=== PATIENT | male | born 1975 | race Caucasian/White ===

== ENCOUNTER 2019-07-30 01:06 | Day surgery (SDC) | payer MEDICARE, SELFPAY ==
[2019-07-27 13:49] VITALS: BMI 25.2
[2019-07-30 09:41] VITALS: BP 120/67; PULSE 69; RESP 18; TEMP 36.6; O2SAT 96; BMI 25.2
[2019-07-30] MEDS: LACTATED RINGERS 1,000 ML 150 ML IV CONT (09:52)
--- NOTE | 2019-07-30 09:57 | P.PNAN_ITS ---
Anes - Initial Pre Proc Eval Procedure: Operation Date: 07/30/19 10:30 Proposed Procedures p Esophagogastroduodenoscopy - Chuy Valdovinos MD Date/Time: 07/30/19 09:57 Surgeon: Chuy Valdovinos MD Pre Op Diagnosis: dysphagia, GERD Patient Data Age: 44 Gender: M Height: 6 ft 6 in Weight: 98.8 kg Last Vital Signs Temp 36.6 C 07/30/19 09:41 Pulse 69 07/30/19 09:41 Resp 18 07/30/19 09:41 BP 120/67 07/30/19 09:41 Pulse Ox 96 07/30/19 09:41 Allergies Allergy/AdvReac Type Severity Reaction Status Date / Time azithromycin Allergy Intermediate Rash Verified 07/30/19 09:39 codeine Allergy Mild Rash Verified 07/30/19 09:39 Penicillins Allergy Mild Unknown Verified 07/30/19 09:39 ketorolac [From Toradol] AdvReac Unknown Vomiting Verified 07/30/19 09:39 Home Medications Medication Instructions Recorded Confirmed Type ibuprofen 600 mg PO TID PRN 07/27/19 07/27/19 History pantoprazole 40 mg PO BID 07/27/19 07/27/19 History Patient hx anesthesia problems: none Family hx anesthesia problems: none [facility] Past Medical History Medical History (Updated 07/30/19 @ 09:58 by Rahul Fermin MD) GERD (gastroesophageal reflux disease) Thoracic outlet syndrome Anes - Eval Final PreProcedure Day of Procedure 07/30/19 09:57 Patient weight: normal Heart: regular rate and rhythm Lungs: clear to auscultation Airway: Mallampati scale class 1 Neurological: alert and oriented Last oral intake: >/= 8 hours ASA classification: II Emergent: no Anesthetic plan: proceed Anesthesia type and monitoring: general GIVS and standard monitoring Informed Consent: The patient's anesthetic plan and its attendant risks and benefits were discussed with the patient/family/POA. Questions were solicited and answers provided to the satisfaction of the patient/family/POA.
[2019-07-30] MEDS: BENZOCAINE (*SP) 60 ML SPRAY CAN (HURRICAINE) 1 SPRAY MUCOUS MEM (10:17)
--- NOTE | 2019-07-30 10:24 | P.CONGI_ITS ---
Assessment and Plan Additional Plan This is a 44-year-old white male patient seen in evaluation at the request of Dr. Kvng Griffin patient has a 1 year history of food sticking in his chest. He has difficulty swallowing. He states this happens more often with solid foods than liquid foods. It will hang up in the mid chest. He does complain of frequent heartburn. He has been treated with pantoprazole for the last 2 weeks. Other medications include ibuprofen. An endoscopy in 2013 revealed esophageal web. Patient denies any weight loss. He denies any bleeding. Family history is noncontributory. He has allergies to codeine Past medical history significant for GE reflux Physical exam reveals him to be alert. Vital signs stable. HEENT exam unremarkable. He is anicteric. Lungs are clear to auscultation and percussion. Heart is without murmur or extra sounds. Abdominal exam bowel sounds are present soft nontender with no organomegaly. Digital external rectal exam deferred Impression 1. Dysphagia. Patient has a history of esophageal web. 2. GE reflux disease. Manifested by heartburn. Plan is to continue pantoprazole. Elevate head of bed. No late snacks. An EGD will be performed. GI Consult Note Consult date/time: 07/30/19 10:24 HPI: Jason Johnson is a 44 year old male [facility] Past Medical History Medical History (Updated 07/30/19 @ 09:58 by Rahul Fermin MD) GERD (gastroesophageal reflux disease) Thoracic outlet syndrome Meds Home Medications and Allergies Home Medications Medication Instructions Recorded Confirmed Type ibuprofen 600 mg PO TID PRN 07/27/19 07/27/19 History pantoprazole 40 mg PO BID 07/27/19 07/27/19 History Allergies Allergy/AdvReac Type Severity Reaction Status Date / Time azithromycin Allergy Intermediate Rash Verified 07/30/19 09:39 codeine Allergy Mild Rash Verified 07/30/19 09:39 Penicillins Allergy Mild Unknown Verified 07/30/19 09:39 ketorolac [From Toradol] AdvReac Unknown Vomiting Verified 07/30/19 09:39 Vital Signs Vital Signs - 24 hr 07/30/19 09:41 Temperature 36.6 C Pulse Rate 69 Respiratory Rate 18 Blood Pressure 120/67 Pulse Oximetry 96
[2019-07-30 10:28] VITALS: BP 109/71; PULSE 68; RESP 20; O2SAT 98
[2019-07-30 10:38] VITALS: BP 119/72; PULSE 65; RESP 14; O2SAT 99
[2019-07-30 10:48] VITALS: BP 127/59; PULSE 66; RESP 18; O2SAT 98
== END 2019-07-30 11:03 | disposition home or self-care (01) ==
PROVIDERS: PCP Family Medicine Adolescent Medicine; Visit Provider Internal Medicine Gastroenterology
PROC: 0DJ08ZZ Inspection of Upper Intestinal Tract, Via Natural or Artificial Opening Endoscopic (ICD-10-PCS; CPT 43235; principal; 2019-07-30 10:30)
DX: R13.10 Dysphagia, unspecified (principal); K21.0 Gastro-esophageal reflux disease with esophagitis; G54.0 Brachial plexus disorders
CPT/HCPCS: 43239; 43450; 88305; J2704; J7120

== ENCOUNTER → 2022-07-06 13:36 | Outpatient (CLI) | payer MEDICARE, SELFPAY ==
--- NOTE | ~2022-07-06 | MR_ITS ---
EXAMINATION: MR brain/brain stem wo/w con DATE: 07/06/2022 14:46 INDICATION: Dizziness and giddiness. TECHNIQUE: Magnetic resonance imaging (MRI) of the brain and brainstem was performed without and with 20 mL MultiHance intravenous contrast. COMPARISON: None. FINDINGS: There is no intracranial hemorrhage, acute infarction, or abnormal intracranial mass lesion . The ventricles are normal in size. There is mucosal thickening in right maxillary sinus. The orbits are normal. There is a small left mastoid effusion. IMPRESSION: 1. Normal brain. Reviewed, dictated and finalized at location A. RACT CLERK IMPRESSION: 1. Normal brain.
== END ==
PROVIDERS: PCP Student in an Organized Health Care Education/Training Program; Visit Provider Student in an Organized Health Care Education/Training Program
DX: R42 Dizziness and giddiness (principal)
CPT/HCPCS: 70553; A9577

== ENCOUNTER 2022-10-15 12:24 | Emergency (ER) | payer MEDICARE, SELFPAY ==
--- NOTE | ~2022-10-15 | XR_ITS ---
EXAMINATION: XR foot RT min 3V DATE: 10/15/2022 12:53 INDICATION: Right foot injury and pain. TECHNIQUE: 4 views of right foot were obtained. COMPARISON: None. FINDINGS: There is a nondisplaced transverse fracture of diaphysis of second metatarsal. 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 There is an enthesoph yte at posterior aspect of calcaneal tuberosity. IMPRESSION: 1. Nondisplaced transverse fracture of diaphysis of second metatarsal. Reviewed, dictated and finalized at location A.
[2022-10-15 12:41] VITALS: BP 145/88; PULSE 87; RESP 16; TEMP 36.8; O2SAT 99
--- NOTE | 2022-10-15 12:47 | ED.LOWEXIN ---
HPI - Extremity Injury (Lower) General Chief Complaint: Extremity Injury, Lower Stated Complaint: right foot injury Time Seen by Provider: 10/15/22 12:47 Source: patient, family, RN notes reviewed and old records reviewed Mode of arrival: ambulatory Limitations: no limitations History of Present Illness HPI Narrative: 47 year old male who presents to [facility] care with complaints of injury to his right foot which occurred about an hour ago when a ladder dropped onto his right foot. Patient reports that it was an extension ladder and it dropped across the dorsal right foot from about 6 foot distance.Patient removed tennis shoe after arrival to clinic. Patient has bruising over 2nd metatarsal area, and when attempting to move toes voiced extreme pain. Patient reports tightness feeling to right foot with strong pedal pulse present,nail bed have brisk capillary refill. Patient denies any tingling or numbness,ice bag applied to right foot. Patient reports that he has taken some Ibuprofen about an hour prior to injury. MD complaint: foot injury Onset (ago): hour(s) (approx. hour prior to arrival) Injury: Right: foot Type of Injury: blunt Place: home Severity scale (1-10): 10 Treatments prior to arrival: NSAIDS Related Data Home Medications Medication Instructions Recorded Confirmed No Home Medications 10/15/22 10/15/22 Allergies Allergy/AdvReac Type Severity Reaction Status Date / Time azithromycin Allergy Intermediate Rash Verified 10/15/22 12:27 codeine Allergy Mild Rash Verified 10/15/22 12:27 Penicillins Allergy Mild Unknown Verified 10/15/22 12:27 ketorolac [From Toradol] AdvReac Unknown Vomiting Verified 10/15/22 12:27 Review of Systems Review of Systems: CONSTITUTIONAL: Denies fever, chills, or sweats. EYES: Denies visual changes, redness, or discharge. ENT: Denies rhinorrhea, congestion, sore throat, or otalgia. CARDIOVASCULAR: Denies chest pain, palpitations, or edema. RESPIRATORY: Denies cough or dyspnea. GASTROINTESTINAL: Denies abdominal pain, nausea, vomiting, or diarrhea. GENITOURINARY: Denies dysuria or hematuria. SKIN: Denies rash or itching. MUSCULOSKELETAL: Denies back pain,positive for pain to right 2nd metatarsal area pain with bruising or myalgia. NEUROLOGIC: Denies headache, numbness, or weakness. PSYCHIATRIC: Denies anxiety or depression. All systems reviewed & are unremarkable except as noted in HPI and below PMFSH Past Medical History Medical History GERD (gastroesophageal reflux disease) Thoracic outlet syndrome Comments At time of signature, agree with nursing past medical, surgical, social and family history. There is no relevant family history pertinent to the presenting complaint Exam Narrative: GENERAL: Well-appearing, well-nourished, and in no acute distress. HEAD: Normocephalic, atraumatic. EYES: PERRLA and EOMI. ENT: Nares clear, no rhinorrhea or epistaxis. Mucous membranes moist. NECK: Supple.no lymphadenopathy CHEST: Clear to auscultation. No respiratory distress. HEART: Regular rate and rhythm. No murmur heard. Normal peripheral pulses. ABDOMEN: Soft, nontender, nondistended, normal active bowel sounds. EXTREMITIES: Normal range of motion. No edema.Exception noted to right 2nd metatarsal area after ladder fell on foot, increase pain with any movement of toes righ
== END 2022-10-15 13:31 | disposition home or self-care (01) ==
PROVIDERS: Emergency Provider Registered Nurse; PCP Student in an Organized Health Care Education/Training Program
DX: S92.324A Nondisplaced fracture of second metatarsal bone, right foot, initial encounter for closed fracture (principal); W20.8XXA Other cause of strike by thrown, projected or falling object, initial encounter; K21.9 Gastro-esophageal reflux disease without esophagitis
CPT/HCPCS: 73630; 99204; G0463

== ENCOUNTER 2024-03-25 15:55 | Emergency (ER) | payer MEDICARE, SELFPAY ==
[2024-03-25 16:07] VITALS: BP 150/86; PULSE 88; RESP 16; TEMP 36.6; O2SAT 100
--- NOTE | 2024-03-25 16:08 | ED.MALEGU ---
HPI - Male Genitourinary General Chief complaint: Urogenital-Male Stated complaint: Growing Pain Time Seen by Provider: 03/25/24 16:14 Source: patient and RN notes reviewed Mode of arrival: ambulatory Limitations: no limitations History of Present Illness HPI Narrative: 48-year-old male presents with concern for chronic prostatitis. He reports he had a standing prescription for antibiotics from his primary care doctor that he would take when he was have a flare up. Reports he ran out of that medication. He reports several day history of right groin pain and pain with urination, difficulty emptying his bladder. He denies fever, body aches, chills, sweats. Denies nausea, vomiting, abdominal pain, back pain. He denies testicle redness, swelling MD Complaint: dysuria Related Data Home Medications Medication Instructions Recorded Confirmed pantoprazole 40 mg tablet,delayed 40 mg PO DAILY 03/25/24 03/25/24 release Allergies Allergy/AdvReac Type Severity Reaction Status Date / Time azithromycin Allergy Intermediate Rash Verified 03/25/24 16:07 codeine Allergy Mild Rash Verified 03/25/24 16:07 Penicillins Allergy Mild Unknown Verified 03/25/24 16:07 clindamycin Allergy Unknown unknown Verified 03/25/24 16:07 Tetracyclines Allergy Unknown unknown Verified 03/25/24 16:07 ketorolac [From Toradol] AdvReac Unknown Vomiting Verified 03/25/24 16:07 tramadol Allergy Unknown unknown Uncoded 03/25/24 16:07 Review of Systems Review of Systems: CONSTITUTIONAL: Denies malaise, chills, sweats, or fever. CARDIOVASCULAR: Denies chest pain, palpitations, or edema. RESPIRATORY: Denies cough or dyspnea. GASTROINTESTINAL: Denies abdominal pain, nausea, vomiting, diarrhea GENITOURINARY: Reports groin pain, dysuria, difficulty emptying his bladder. Denies frequency, urgency, suprapubic pressure. Denies flank pain or hematuria. SKIN: Denies rash or itching. MUSCULOSKELETAL: Denies back pain or myalgia. All systems reviewed & are unremarkable except as noted in HPI and below PMFSH Past Medical History Medical History GERD (gastroesophageal reflux disease) History of postoperative nausea and vomiting Sensitivity to medication Narcotics Thoracic outlet syndrome Had surgery for this Surgical History Surgical History History of surgery Collar bone x2 History of surgery on extremity biceps Social History Social History Smoking status: Never smoker Alcohol intake: never Substance use: never Substance use type: does not use Lack of Transportation: No Lack of Food: Never True Current Housing: I Have Housing Concerned About Future Housing: No Difficulty Paying Gas/Electric Bills: No Difficulty Paying for Meds: No Currently Unemployed: No Education: Trade/Vocational Certificate Difficulty w/ Childcare or Family Care: No Comments At time of signature, agree with nursing past medical, surgical, social and family history. There is no relevant family history pertinent to the presenting complaint Exam Narrative: GENERAL: Well-appearing, well-nourished, and in no acute distress. HEAD: Normocephalic. EYES: PERRLA, conjunctivae clear. NECK: Supple. No lymphadenopathy CHEST: Clear to auscultation. No respiratory distress. HEART: Regular rate and rhythm. SKIN: Warm, dry, no rash. NEURO: Alert and oriented x3. PSYCH: Normal mood and affect Course Course Emergency Course: Patient is aware of diagnosis, understands and agrees to treatment plan. Anticipatory guidance given. Patient agrees to follow-up as directed and is aware of reasons to seek care at the emergency department. Portions of this record may have been created with voice recognition software Level of Care: Express Care Visit Vital Signs Vital signs: Reviewed. [facility] -
== END 2024-03-25 16:23 | disposition home or self-care (01) ==
PROVIDERS: Emergency Provider Nurse Practitioner; PCP Student in an Organized Health Care Education/Training Program
DX: N41.1 Chronic prostatitis (principal)
CPT/HCPCS: 99213; G0463